=== PATIENT | male | born 1975 | race Two or more races ===

== ENCOUNTER → 2025-09-02 12:21 | Outpatient (REF) | payer BC, SELFPAY ==
[2025-09-02 12:57] VITALS: BP 144/94; BP_SYST 77
== END ==
LOC: RADI 12:21
PROVIDERS: ATTENDING PHYSICIAN Nurse Practitioner Family; FAMILY PHYSICIAN Family Medicine
DX: E04.2 Nontoxic multinodular goiter (principal)
CPT/HCPCS: 10005; 10006; 88173